=== PATIENT | female | born 1955 | race Caucasian/White ===

== ENCOUNTER 2023-07-22 12:53 | Emergency (ER) | payer OTHER ==
[~2023-07-22] VITALS: Ht 144.8 cm; Wt 62.1 kg
[2023-07-22 12:59] VITALS: BP_SYST 136; PULSE 68; TEMP 97; O2SAT 94
[2023-07-22] MEDS: IPRATROPIUM/ALBUTEROL SULFATE 3 ML AMPUL.NEB (DUONEB) INH ONE (13:36)
[2023-07-22 13:42] VITALS: O2SAT 94
[2023-07-22] MEDS ORDERED: PRED50TA PO (13:57)
[2023-07-22] MEDS ORDERED: ALBMDI INH (13:57)
[2023-07-22] MEDS ORDERED: BROM118S61 PO (14:26)
== END 2023-07-22 14:36 | disposition home or self-care (01) ==
LOC: SED 12:53
DX: J20.9 Acute bronchitis, unspecified (principal); R09.89 Other specified symptoms and signs involving the circulatory and respiratory systems; Z90.710 Acquired absence of both cervix and uterus; Z98.890 Other specified postprocedural states; Z79.899 Other long term (current) drug therapy
CPT/HCPCS: 71045; 94640; 99283